=== PATIENT | male | born 1985 | race Caucasian/White ===

== ENCOUNTER 2021-12-29 13:33 | Outpatient (REF) | payer MEDICAID, SELFPAY ==
[2021-12-29 14:08] LABS: COVID-19 Test Negative (Negative); IDNOW Serial# 9DB6401D
== END 2021-12-29 13:34 | disposition home or self-care (01) ==
LOC: HO.LAB 13:33
PROVIDERS: Visit Provider Internal Medicine
DX: Z20.822 Contact with and (suspected) exposure to COVID-19 (principal)
CPT/HCPCS: 87635; C9803

== ENCOUNTER 2024-05-22 08:27 | Outpatient (AMB) | payer OTHER, SELFPAY ==
--- NOTE | 2024-05-22 08:31 | MHC.OFFWIV ---
Intake Vital Signs 05/22/24 08:34 Height 5 ft 11 in Weight 311 lb BMI 43.4 BP 120/78 Blood Pressure Location Lt brachial Position Sitting Pulse 101 H Pulse Source Pulse Oximeter Temp 100.4 F Temp Source Oral Pulse Oximetry (%) 98 Oxygen Delivery Method Room Air Intake Visit Reasons: [employer] Painful hemorroids, fever Intake Note: Patient here for hemorrhoids that started last week which they started to get better but in the past couple of days it has worsened and now has swelling up the buttocks and fevers that started last night. Patient Tobacco Use Status: Current someday Tobacco user Allergies Sulfa (Sulfonamide Antibiotics) Adverse Reaction (Mild, Verified 05/22/24 08:35) rash and swelling Do you need a note to return to daycare/school/sports/work: No HPI HPI Comments History of Present Illness Details Patient is a 38-year-old male complaining of worsening hemorrhoids and a fever. He states he has had a T-max of 102 degrees but he took some Tylenol and it came down to 100F. He states he typically has hemorrhoids but they go away within a week. He states the hemorrhoids came out last week but they seem to be getting worse. He does use witch Gisell pads but does not seem to be helping. He states he feels like it is bulging out and it is very painful. He tried taking a hot shower with mild relief. He states that the hemorrhoids are not bleeding and they do not seem to be broken open or none of the skin on or around his rectum seems to be opened/infected. He denies any upper respiratory symptoms such as a headache, sore throat, cough or congestion. [facility] Social History Patient Tobacco Use Status: Current someday Tobacco user Review of Systems Const All systems reviewed & are unremarkable except as noted in HPI and below Physical Exam Vital Signs: Last Vital Signs Temp 100.4 F 05/22/24 08:34 Pulse 101 H 05/22/24 08:34 BP 120/78 05/22/24 08:34 Pulse Ox 98 05/22/24 08:34 Oxygen Delivery Method Room Air 05/22/24 08:34 BMI result Body Mass Index 43.4 Const General: cooperative, healthy appearing, comfortable, no acute distress and well developed Orientation/consciousness: patient oriented x3 Limitations: no limitations HEENT Head: Yes normal to inspection Ears: hearing grossly normal bilaterally General nose exam: Normal external nose present Face and sinus: Yes normal facial exam Eyes General: appearance normal, both eyes and all related structures Neck Neck: Yes normal visual inspection and Yes full ROM Resp Effort & Inspection: normal respiratory effort and able to speak in complete sentences GI Rectal Exam - Male: Yes deferred Skin General skin exam: no rashes or lesions noted Neuro General: patient oriented x3 Extrem General: Yes normal to inspection Assessment & Plan Assessment & Plan (1) Hemorrhoids without complication: Code(s): K64.9 - Unspecified hemorrhoids Plan: Recommended he but the green Gisell pads in the refrigerator for extra cooling effect and he start using hydrocortisone cream 2.5% as well as taking Sitz baths and ibuprofen. If no relief in symptoms, he should follow up with his PCP. Unclear what the fevers from as he has no other symptoms and he assures me the area is not broken open and did decline an exam of the hemorrhoids. Plan see above Coding Level of Care Code New Pt Level 3 (11138) Diagnoses Hemorrhoids without complication K64.9
[2024-05-22 08:34] VITALS: BP 120/78; PULSE 101; TEMP 38; O2SAT 98; BMI 43.4
== END 2024-05-22 09:15 | disposition home or self-care (01) ==
PROVIDERS: Visit Provider Physician Assistant
DX: K64.9 Unspecified hemorrhoids (principal)

== ENCOUNTER → 2024-05-22 08:27 | Outpatient (BNVA) | payer OTHER, SELFPAY | DX: K64.9 Unspecified hemorrhoids (principal) | CPT/HCPCS: 99202 ==